=== PATIENT | male | born 1995 | race Caucasian/White ===

== ENCOUNTER → 2025-03-15 | Emergency (ER) | payer OTHER ==
[~2025-03-15] VITALS: Ht 185.4 cm; Wt 83.9 kg
[~2025-03-15] MED LIST: CLIN150C16 PO
[2025-03-15 18:52] VITALS: BP 132/67; TEMP 98.8; O2SAT 99
== END | disposition home or self-care (01) ==
LOC: ER 18:24
DX: K62.5 Hemorrhage of anus and rectum (principal)

== ENCOUNTER 2025-03-17 23:55 | Emergency (ER) | payer OTHER ==
[~2025-03-17] VITALS: Ht 177.8 cm; Wt 77.1 kg
[2025-03-18] MEDS ORDERED: CEFTRIAXONE 1GM BAG (ER ONLY) 50 ML IV ONE (01:23)
[2025-03-18] MEDS ORDERED: IOHEXOL-300 100 ML VIAL IV ONE (01:27)
[2025-03-18] MEDS ORDERED: CT SWABBABLE VALVE TRANS SET 1 EA INFUS.SET MC ONE (01:27)
[2025-03-18] MEDS ORDERED: IV NS 0.9% 250 ML IV ONE (01:27)
[2025-03-18 01:32] LABS: PLATELET COUNT (AUTO) 144 K/uL (150-450); RED BLOOD CELL COUNT(AUTO) 4.22 MIL/uL (4.5-6.0); RED CELL DISTRIBUTION WIDTH 12.6 % (11.5-15.0); WHITE BLOOD COUNT (AUTO) 5.9 K/uL (4.3-11.0)
[2025-03-18 01:46] LABS: ASPARTATE AMINOTRANSFERASE 15.0 U/L (15-37); CALCIUM, SERUM 8.7 mg/dL (8.5-10.1); CREATININE 1.3 mg/dL (0.6-1.3); SODIUM SERUM 137.0 mmol/L (136-145); TOTAL PROTEIN, SERUM 7.6 g/dL (6.4-8.2); UREA NITROGEN, BLOOD 14.0 mg/dL (7-18)
[2025-03-18] MEDS: CEFTRIAXONE 1 G in IV D5W 50 ML IV ONE (01:47)
[2025-03-18 01:49] LABS: LACTIC ACID 0.7 mmol/L (0.4-2.0)
[2025-03-18] MEDS ORDERED: CLIN150C16 PO (03:19)
[2025-03-18 03:52] VITALS: BP 130/83; TEMP 98.2; O2SAT 98
== END 2025-03-18 03:52 | disposition home or self-care (01) ==
LOC: ER 23:57
DX: T14.8XXA Other injury of unspecified body region, initial encounter (principal); C92.10 Chronic myeloid leukemia, BCR/ABL-positive, not having achieved remission; X58.XXXA Exposure to other specified factors, initial encounter; Y93.89 Activity, other specified; Y92.89 Other specified places as the place of occurrence of the external cause; Y99.8 Other external cause status
CPT/HCPCS: 99285; 74177; 96365; 85025; 87040; 83605; 36415; 80053; J0696 ×2; J7060; J7050; Q9967